=== PATIENT | male | born 1955 | race Caucasian/White ===

== ENCOUNTER → 2018-12-08 | Day surgery (SDC) | payer MEDICARE, OTHER ==
[2018-12-04 15:15] LABS: BASOPHILS % 0.2 % (0.0-1.0); EOSINOPHILS # (AUTO) 0.1 (0.0-0.4); HEMATOCRIT 38.8 % (38.2-49.6); HEMOGLOBIN 12.4 g/dL (14.0-18.0); LYMPHOCYTES # (AUTO) 1.1 (1.0-3.2); LYMPHOCYTES % 10.5 % (18.0-39.1); MEAN CORPUSCULAR HEMOGLOBIN 30.7 pg (28-32); MONOCYTES % 9.9 % (4.4-11.3); PLATELET COUNT 170 x10e3/uL (140-360); RED BLOOD COUNT 4.04 x10e6/uL (4.3-5.7); RED CELL DISTRIBUTION WIDTH 14.1 % (11.7-14.4)
[2018-12-04 15:37] LABS: ALANINE AMINOTRANSFERASE 118 IU/L (0-55); ALBUMIN 3.2 g/dL (3.5-5.0); ALBUMIN/GLOBULIN RATIO 0.8 (0.8-2.0); ALKALINE PHOSPHATASE 236 IU/L (40-150); ANION GAP 15.7 mmol/L (8-16); BLOOD UREA NITROGEN 13 mg/dL (7-26); BUN/CREATININE RATIO 16 (6-25); CALCIUM 10.1 mg/dL (8.4-10.2); CARBON DIOXIDE 28 mmol/L (22-29); CHLORIDE 100 mmol/L (98-107); EST GLOMERULAR FILTRATION RATE > 60 ML/MIN (60-); GLUCOSE 96 mg/dL (74-118); POTASSIUM 3.7 mmol/L (3.5-5.1); SODIUM 140 mmol/L (136-145)
[~2018-12-08] VITALS: Ht 172.7 cm; Wt 77.1 kg
[~2018-12-08] MED LIST: ACETAMINOPHEN325 M1 PO; ALPRAZOLAM 0.5 MG TAB ONE; ASPIRIN 325 MG TAB ONE; DIPHENHYDRAMINE HCL 25 MG CAP ONE; FENTANYL CITRATE/PF 100MCG/2 ML INJ ONE; HEPARIN SOD (PORCINE) 1000 UNIT/ML 30ML ONE; HEPARIN SOD/SOD CHLORIDE 2,000 ML ONE; IBUPROFEN200 MG PO; IOPAMIDOL 300MG/ML 100 ML INFUS..BTL IV ONE; LIDOCAINE HCL 2% LOCAL 20 ML VIAL ONE; LOTREL 5-20 MG1 EACH PO; MIDAZOLAM HCL 2 MG/2 ML VIAL ONE; NEXAVAR200 MG PO; SODIUM CHLORIDE 0.9% 1000ML 1,000 ML ONE; SODIUM CHLORIDE 0.9% 50ML 50 ML ONE; TYLENOL EXTRA500 MG PO; ULTRAM 50MG50 MG PO; XIFAXAN200 MG PO
--- OUTSIDE RECORDS SUMMARY | 2018-12-08 11:06 | XMS REPORT ---
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 Allergies, Adverse Reactions, Alerts This patient has no known allergies or adverse reactions. Medications This patient has no known medications. Encounters Start Date/Time End Date/Time Encounter Type Admission Type Attending Clinicians Care Facility Care Department Encounter ID 2018-10-01 08:48:00 2018-10-01 08:48:00 Outpatient [facility] [id number]
[2018-12-08 11:45] VITALS: BP 126/66
[2018-12-08 13:30] VITALS: BP 130/86
--- NOTE | 2018-12-08 13:40 | NUR ---
bedside report received from Duc Ayala RN. Drowsy and Alert oriented and appropriate when aroused, PERRLA, respirations even and unlabored to room air. Pulses left lower extremity weak PT/DP, absent right PT/DP, and weak right pop. Cap fill brisk < 3 sec on left, > 3 on right with dressing to greater toe and small toe Skin warm and dry integrity appears intact x/ for tautness of right lower leg. IV 20g to left hand presents healthy w/o s/s of infiltration or complaint. Abdomen soft and supple. pt offered 600 ml of urinae produced. Personal affects with patient. Family at bedside. Pt and family verbalizes understanding of POC. Bed side monitoring. Currently w/o complaint of pain or need. bilateral groin w/o s/s of complications. bed low and locked, side rails up x 2, and call llgiht at side . -cgf
[2018-12-08 13:45] VITALS: BP 128/76
--- NOTE | 2018-12-08 13:55 | NUR ---
Dr Zepeda to bedside discussing findings and POC. - cgf
[2018-12-08 14:00] VITALS: BP 133/76
[2018-12-08 14:15] VITALS: BP 136/74
--- NOTE | 2018-12-08 14:30 | NUR ---
Pt meets DC criteria. bilateral groin assessed for s/s of complication and presence of hematoma. skin warm, dry, no discolor, and pulses present except as identified in prior note. IV removed from left hand. Distal tip appears intact. VS WNL. Pt denies pain, sob, or need at this time. Family at bedside. Review of discharge paperwork and follow up instructions. verbalized understanding. Pt to wheelchair and transported to front of hospital. Transferred to private vehicle under own strength w/o incident with DC paperwork in hand. - cgf
--- NOTE | 2018-12-08 16:25 | Operative Report ---
DATE OF PROCEDURE: 12/08/2018 SURGEON: Gianfranco Zepeda MD INDICATIONS: Peripheral arterial disease, critical limb ischemia with ulceration of the right lower extremity. PROCEDURES PERFORMED: 1. Abdominal aorta with abdominal aortogram. 2. Third-order catheter placement from the left femoral artery to the right superficial femoral artery. 3. Right common and external iliac artery stent placement. 4. Deployment of bilateral groin Perclose closure device. COMPLICATIONS: None. RECOMMENDATIONS: Dual antiplatelet therapy with staged right femoral-popliteal bypass grafting after cardiac workup. DESCRIPTION OF PROCEDURE: Access obtained in the left femoral artery. A 6-Lao sheath was placed. Abdominal aortogram demonstrated 70% to 80% stenosis in the right common iliac artery, left common iliac artery, 50% stenosis. The right femoral artery was not well visualized. The catheter then advanced from the left femoral artery to the right superficial femoral artery, complete occlusion with heavily calcified right femoral artery was noted. Possible single-vessel runoff via the peroneal artery. Attempts were made to cross into the right femoral artery, however, this procedure was aborted due to failure of intraluminal passage of the wire. Right iliac stent 10 x 36 and 8 x 56 mm were placed without any complications. Bilateral groin Perclose was applied. The patient discharged home same day. Gianfranco Zepeda MD KSB/MODL /[id number]
== END | disposition home or self-care (01) ==
LOC: CATH LAB 11:01
PROVIDERS: ATTEND Internal Medicine Interventional Cardiology
DX: I70.235 Atherosclerosis of native arteries of right leg with ulceration of other part of foot (principal); I25.10 Atherosclerotic heart disease of native coronary artery without angina pectoris; I87.2 Venous insufficiency (chronic) (peripheral); Z01.812 Encounter for preprocedural laboratory examination; Z82.49 Family history of ischemic heart disease and other diseases of the circulatory system
CPT/HCPCS: 36415; 37221; 75625; 75710; 80053; 85025; C1725; C1766 ×2; C1769 ×3; C1874; C1876 ×2; C1887 ×3; J1644; J2001; J2250; J3010; J7030; Q9967; 36247